=== PATIENT | male | born 1955 | race Caucasian/White ===

== ENCOUNTER 2023-04-30 11:53 | Emergency (ER) | payer MEDICARE, OTHER, SELFPAY ==
[2023-04-30 12:03] VITALS: BP 117/80
--- NOTE | 2023-04-30 13:03 | ED.GENMED ---
History of Present Illness
General
Chief Complaint: Fall
Time Seen by Provider: 04/30/23 12:39
Travel History
Have you had any contact with someone who has COVID-19?: No
Do you have any symptoms of coronavirus? Fever > 100 degrees, chills, cough, shortness of breath, sore throat, loss of taste or smell, muscle aches, or headache?: No
History of Present Illness
History of Present Illness:
68-year-old male with history of insulin-dependent diabetes, intracranial hemorrhage, and prior stroke presents to the emergency department for evaluation of right knee and right ankle pain after mechanical fall last night. States he slipped and
landed on his right side. He is able to ambulate with significant pain. Denies any head injury or hip pain at this time. Took 1 dose of oxycodone last night without significant improvement.
Review of Systems
Review of Systems
Allergies reviewed?: Yes
All Other Systems: ROS reviewed and negative except as documented in HPI and ROS
Phy Exam
Physical Exam
Physical Exam:
GEN: Well appearing, NAD, WDWN
HEENT: Oral mucosa moist, no scleral icterus
Cardiac: Regular rate
Lung: No respiratory distress, no tachypnea
MSK: Mild swelling over the right knee with no obvious deformity. Exquisite tenderness to palpation throughout all hernandez. Flexion is limited to approximately 45 degrees before pain is further ROM. Tenderness to the lateral malleolus of the right
ankle with no crepitus, no joint effusion, normal range of motion
Skin: Good color, no pallor or jaundice, no rashes
Neuro: AO x3, moves all extremities freely
Psych: Calm, cooperative
Course
Orders/Labs/Results
Orders:
Orders
04/30/23 12:01
Ankle, Right 3 view CR [CR Ankle - Right Min 3 Views *] Urgent
Comment:
Reason For Exam: Pain/Injury
Knee, Right 4 or More Views [CR Knee- Right 4 Or More View*] Urgent
Comment:
Reason For Exam: Injury/Pain
04/30/23 13:02
Dennis Wrap Right-Treatment ONCE
Comment: R ankle
Knee Immobilizer Right-Treatme ONCE
Acetaminophen [Tylenol] 1,000 mg PO NOW STA
Oxycodone [Roxicodone] 5 mg PO NOW STA
Vital Signs
Initial and Last Documented VS:
Initial Vital Signs
Temp Pulse Resp Pulse Ox
98.0 F 79 18 97
04/30/23 11:56 04/30/23 11:56 04/30/23 11:56 04/30/23 11:56
Last Documented Vital Signs
Temp Pulse Resp BP Pulse Ox
98.0 F 79 18 117/80 97
04/30/23 11:56 04/30/23 11:56 04/30/23 11:56 04/30/23 12:03 04/30/23 11:56
MDM/Problems Addressed
MDM/Problems Addressed:
X-rays of the right knee and the right ankle independently interpreted by me are negative for acute osseous abnormalities or fractures. Patient was placed in a knee immobilizer due to concern for potential ligamentous or meniscal injury to the
right knee, he is able to bear weight with assistance. He is comfortable with discharge home as he resides in a single-story home and has adequate assistance. Due to his prior intracranial hemorrhage we will avoid NSAIDs, recommend outpatient
orthopedic follow-up
*Critical Care Note
Total Time (30-74mins, 75-104mins- exclusive of procedures): Not Applicable
ED Attending Note
-
Portions of this chart may have been created with voice recognition software.� Occasional wrong word or��sound alike� substitutions may have occurred due to the inherent limitations of voice recognition software.
Discharge Plan
Departure
Patient Disposition: Home (Routine Discharge)
Date of Disposition: 04/30/23
Time of Disposition: 13:55
Patient with high blood pressure during this ER visit?: No
Discharge Problem:
Right knee sprain, Right ankle sprain
Instructions: Knee Sprain ED
Prescriptions:
New
oxycodone 5 mg tablet
5 mg PO Q8H PRN (Reason: Pain) Qty: 10 0RF
Referrals:
Rolando Ornelas DO [Family Provider] -
Kali Daniel MD [Active] - Call in 1-3 days for appt
Interventions
Interventions:
*Risk Screen - Suicide Last Done: 04/30/23 11:56
*General Assessment Last Done: 04/30/23 12:11
*Neglect/Abuse Screening Last Done: 04/30/23 11:56
ED- Fall Risk Assessment Last Done: 04/30/23 12:11
*ED COVID-19 Vaccine History Last Done: 04/30/23 11:56
*Nursing Disposition Last Done: 04/30/23 14:10
ED-Musculoskeletal Assessment Last Done: 04/30/23 12:11
ED- Neurological Assessment Last Done: 04/30/23 12:11
ED-Skin Assessment Last Done: 04/30/23 12:11
Discharge Date and Time
Discharge Date/Time: 04/30/23 14:10
[2023-04-30] MEDS: ROXICODONE 5 MG PO (13:20)
[2023-04-30] MEDS: TYLENOL 1000 MG PO (13:21)
== END 2023-04-30 14:10 | disposition home or self-care (01) ==
LOC: EMR 11:53
PROVIDERS: EMERGENCY PHYSICIAN Emergency Medicine; FAMILY PHYSICIAN Family Medicine
DX: S83.91XA Sprain of unspecified site of right knee, initial encounter (principal); S93.401A Sprain of unspecified ligament of right ankle, initial encounter; W01.0XXA Fall on same level from slipping, tripping and stumbling without subsequent striking against object, initial encounter; E11.9 Type 2 diabetes mellitus without complications
CPT/HCPCS: 99283; 29505; 73564; 73610

== ENCOUNTER → 2023-05-30 10:35 | Outpatient (REF) | payer MEDICARE, OTHER, SELFPAY | LOC: PAVMRI 10:35 | PROVIDERS: ATTENDING PHYSICIAN Specialist; FAMILY PHYSICIAN Family Medicine | DX: M25.561 Pain in right knee (principal) | CPT/HCPCS: 73721 ==

== ENCOUNTER → 2023-06-16 | Outpatient (REF) | payer MEDICARE, OTHER, SELFPAY | LOC: DHSLP | PROVIDERS: ATTENDING PHYSICIAN Internal Medicine; FAMILY PHYSICIAN Family Medicine | DX: G47.30 Sleep apnea, unspecified (principal); R06.83 Snoring | CPT/HCPCS: 95800 ==

== ENCOUNTER → 2023-07-04 09:32 | Outpatient (REF) | payer MEDICARE, OTHER, SELFPAY ==
[2023-07-04 10:11] LABS: % Basophils 0.9 % (0-2); % Eosinophils 2.9 % (0-6); % Immature Granulocytes 0.1 % (0-0.5); % Lymphocytes 31.7 % (20.5-51.1); % Monocytes 10.6 % (1.7-9.3); % Neutrophils 53.8 % (42.2-75.2); Absolute Basophils 0.1 10^3/uL (0-0.2); Absolute Eosinophils 0.2 10^3/uL (0-0.7); Absolute Lymphocytes 2.2 10^3/uL (1.2-3.4); Absolute Monocytes 0.7 10^3/uL (0.1-0.6); Absolute Neutrophils 3.7 10^3/uL (1.4-6.5); Hemoglobin 15.6 g/dL (13.0-18.0); Mean Corp Hgb Conc. 31.8 g/dL (33.0-37.0); Mean Corpuscular Hgb 31.1 pg (27.0-31.0); Mean Corpuscular Volume 97.8 fL (80.0-94.0); Mean Platelet Volume 9.7 fL (7.4-10.4); Nucleated Red Blood Cells % 0 % (-); Platelet Count 270 10^3/uL (130-400); Red Blood Cell Count 5.01 10^6/uL (4.70-6.10); Red Cell Dist. Width 12.5 % (11.5-14.5)
[2023-07-04 10:27] LABS: Blood Urea Nitrogen 17 mg/dl (9-20); Calcium 9.4 mg/dl (8.4-10.2); Carbon Dioxide 28 mmol/L (22-30); Chloride 104 mmol/L (98-107); Glucose 118 mg/dl (70-99); Potassium 4.8 mmol/L (3.5-5.1); Sodium 139 mmol/L (135-145); eGFR > 60.00
== END ==
LOC: SDSPAT 09:32
PROVIDERS: ATTENDING PHYSICIAN Specialist; FAMILY PHYSICIAN Family Medicine; OTHER PHYSICIAN Psychiatry & Neurology Neurology
DX: Z01.818 Encounter for other preprocedural examination (principal)
CPT/HCPCS: 36415; 80048; 85025

== ENCOUNTER 2023-07-18 06:14 | Day surgery (SDC) | payer MEDICARE, OTHER, SELFPAY ==
[2023-07-04 09:43] VITALS: BMI 24.9
[2023-07-18] VITALS (10 sets, daily range): BP systolic 136–172; BP diastolic 76–91; BMI 24.9
[2023-07-18 07:44] LABS: Glucose - Point of Care 103 mg/dl (70-99)
[2023-07-18] MEDS: NORMOSOL-R 1000 IV (07:45)
[2023-07-18] MEDS: TYLENOL 1000 MG PO (07:50)
[2023-07-18 09:06] LABS: Glucose - Point of Care 91 mg/dl (70-99)
[2023-07-18] MEDS: DILAUDID 0.25 MG IV (09:22)
== END 2023-07-18 10:37 | disposition home or self-care (01) ==
LOC: SDS 06:14
PROVIDERS: ATTENDING PHYSICIAN Specialist
DX: S83.231A Complex tear of medial meniscus, current injury, right knee, initial encounter (principal); S83.281A Other tear of lateral meniscus, current injury, right knee, initial encounter; X58.XXXA Exposure to other specified factors, initial encounter; M22.41 Chondromalacia patellae, right knee
CPT/HCPCS: 29880; 82962; 93005

== ENCOUNTER → 2024-03-12 17:37 | Outpatient (REF) | payer MEDICARE, OTHER, SELFPAY | LOC: MRI 17:37 | PROVIDERS: ATTENDING PHYSICIAN Physician Assistant Surgical; FAMILY PHYSICIAN Family Medicine | DX: M25.561 Pain in right knee (principal) | CPT/HCPCS: 73721 ==

== ENCOUNTER → 2024-03-13 10:37 | Outpatient (REF) | payer MEDICARE, OTHER, SELFPAY | LOC: PAVMRI 10:37 | PROVIDERS: ATTENDING PHYSICIAN Specialist; FAMILY PHYSICIAN Family Medicine | DX: M54.16 Radiculopathy, lumbar region (principal); M25.552 Pain in left hip | CPT/HCPCS: 72148; 73721 ==